=== PATIENT | female | born 1950 | race Two or more races ===

== ENCOUNTER 2024-06-17 09:00 | Inpatient (IN) | payer MEDICAID, OTHER ==
[~2024-06-17] VITALS: Ht 152.4 cm; Wt 76.8 kg
[2024-06-17 10:13] LABS: Urine Bacteria None Seen /hpf (None Seen)
[2024-06-17 10:33] LABS: Urine Blood TRACE /uL (Negative); Urine Clarity Clear (Clear); Urine Color Yellow (Yellow); Urine Mucus FEW (None Seen); Urine Protein, UAD TRACE (Negative); Urine Specific Gravity 1.026 (1.001-1.035); Urine Urobilinogen 2 mg/dL (Negative); Urine WBC 1 /hpf (0 - 5)
[2024-06-17 11:07] LABS: Hematocrit 37.9 % (36.0-46.0); Mean Corpuscular Hemoglobin 30.5 pg (28.0-32.0); Mean Corpuscular Hgb Conc. 34.3 g/dL (32.0-36.0); Mean Corpuscular Volume 88.8 fL (80.0-100.0); Platelet Count (auto) 183 10^3/uL (140-450); Red Blood Cells 4.27 10^6/uL (4.0-5.20); Red Cell Distribution Width 13.6 % (11.8-14.3); White Blood Cell 6.7 10^3/uL (4.4-10.8)
[2024-06-17 11:08] LABS: Chloride 106 mmol/L (98-107); Potassium 3.7 mmol/L (3.5-5.1); Sodium 137 mmol/L (136-145)
[2024-06-17 11:09] LABS: Anion Gap 5 (5-15); Calcium 9.8 mg/dL (8.7-10.4); Carbon Dioxide 26 mmol/L (20-30)
[2024-06-17 11:14] LABS: BUN/Creatinine Ratio 14.1 (10.0-20.0); Blood Urea Nitrogen 9 mg/dL (9-23); Glucose 98 mg/dL (74-106)
[2024-06-17 11:15] LABS: Band Neutrophils % (manual) 0; Basophils % (manual) 0 (0.0-2.0); Blast Cells 0; Eosinophils % (manual) 0 (0-7); Metamyelocytes % 0; Myelocytes % 0; Promyelocytes % 0; Reactive Lymphocytes 0
[2024-06-17 12:27] LABS: Lymphocytes % (manual) 32 (10.0-50.0); Monocytes % (manual) 16 (0-12)
[2024-06-17 12:28] LABS: Platelet Estimate Adequate
[2024-06-17] MEDS ORDERED: DOCUSATE SOD 100 MG CAP PO PRN (16:00)
[2024-06-17] MEDS ORDERED: HYDROmorphone HCL 2 MG/ML VL/or syr IV PRN (16:00)
[2024-06-17] MEDS ORDERED: ONDANSETRON HCL 4 MG/2 ML VIAL IV PRN (16:00)
[2024-06-17] MEDS: LACTATED RINGER'S 1,000 ML IV ONE (16:00)
[2024-06-17] MEDS ORDERED: ACETAMINOPHEN 325 MG TAB PO PRN (16:00)
[2024-06-17] MEDS: HYDROcodone-ACET 5/325MG TAB PO PRN (17:48)
[2024-06-17] MEDS: PANTOPRAZOLE 40 MG/10 ML VIAL INJ IV ONE (17:48)
[2024-06-17] MEDS: SODIUM CHLORIDE 0.9% 1,000 ML IVB ONE (17:48)
[2024-06-17] MEDS: ONDANSETRON HCL 4 MG/2 ML VIAL IV ONE (17:49)
[2024-06-17] MEDS: MORPHINE SULFATE 4 MG/ML SYR/VIAL IV ONE (17:49)
[2024-06-17 18:23] VITALS: PULSE 84; RESP 19; O2SAT 95
[2024-06-17] MEDS: SODIUM CHLOR 0.9% PF (SALINE LOCK) 10ML VIAL/SYR IV SCH (22:00)
[2024-06-17 22:33] VITALS: BP_SYST 105; BP_SYST 37; BP_DIAS 37; PULSE 56; RESP 17; TEMP 76.9; TEMP 97.7; O2SAT 95
[2024-06-17 22:45] VITALS: BP 110/52; PULSE 75; RESP 18; O2SAT 95
[2024-06-18] VITALS (8 sets, daily range): BP systolic 95–107; BP diastolic 32–58; PULSE 57–99; RESP 17–20; TEMP 97.7–98.5; O2SAT 93–98
[2024-06-18] MEDS: ENOXAPARIN SOD 40 MG/0.4 ML SYRINGE SC SCH (09:14)
[2024-06-18 09:31] LABS: Albumin 3.8 g/dL (3.2-4.8); Bilirubin, Direct 0.2 mg/dL (<0.3); Bilirubin, Total 0.6 mg/dL (0.2-1.0); Total Protein 6.8 g/dL (5.7-8.2)
[2024-06-18] MEDS ORDERED: HYDROcodone-ACET 5/325MG TAB PO PRN (15:45)
[2024-06-18] MEDS ORDERED: MORPHINE SULFATE INJ 2 MG/ml SYRG IV PRN (15:45)
[2024-06-18] MEDS: SODIUM CHLORIDE 0.9% 1,000 ML IV SCH (18:27)
[2024-06-18 20:32] LABS: INR 1.17 (0.9-1.15); Partial Thromboplastin Time 29.8 SEC (24.5-34.5); Prothrombin Time 12.3 sec (9.3-11.8)
[2024-06-18] MEDS: ceFAZolin 1GM/50ML 50 ML IV SCH (21:25)
[2024-06-18] MEDS: methylPREDNISolone SOD SUCC 125 MG/2 ML VL IV ONE (23:00)
[2024-06-18] MEDS: diphenhdrAMINE HCL 50 MG/1 ML VL IV ONE (23:00)
[2024-06-18] MEDS: FAMOTIDINE (10MG/ML) 2ML VL IV ONE (23:00)
[2024-06-19 01:00] VITALS: BP 103/34; PULSE 69; RESP 16; TEMP 98; O2SAT 96
[2024-06-19 05:00] VITALS: BP 98/41; PULSE 64; RESP 18; TEMP 97.9; O2SAT 95
[2024-06-19 08:00] VITALS: PULSE 64; RESP 16; O2SAT 96
[2024-06-19 09:00] VITALS: BP 109/58; PULSE 64; RESP 16; TEMP 98.3; O2SAT 96
[2024-06-19] MEDS: SODIUM CHLORIDE 0.9% 250 ML IV ONE (12:43)
[2024-06-19 13:00] VITALS: BP 110/57; PULSE 76; RESP 18; TEMP 98.6; O2SAT 95
[2024-06-19 13:12] VITALS: BP 109/58; PULSE 64; RESP 16; TEMP 98.3; O2SAT 96
== END 2024-06-19 13:55 | disposition home or self-care (01) ==
LOC: ER 09:00 → OVERFLOW 15:56 → WEST WING 22:24
PROVIDERS: ADMIT Internal Medicine; ATTEND Internal Medicine
DX: K80.70 Calculus of gallbladder and bile duct without cholecystitis without obstruction (principal); E66.9 Obesity, unspecified; K59.00 Constipation, unspecified; Z68.33 Body mass index [BMI] 33.0-33.9, adult; Z88.1 Allergy status to other antibiotic agents
CPT/HCPCS: 36415; 71045; 74176; 76705; 80048; 80076; 81001; 83690; 85007; 85027; 85610; 85730; 86850; 86900; 86901; 96361; 96374; 96375; G0378; J2405; J2470